=== PATIENT | male | born 1950 | race Caucasian/White ===

== ENCOUNTER → 2016-06-15 | Outpatient (CLI) | payer MEDICARE ==
[2016-06-15 11:44] LABS: ALT 29 U/L (21-72); AST 22 U/L (17-59); Cholesterol 167 mg/dL (<200); HDL Cholesterol 76 mg/dL (40-60); Triglycerides 107 mg/dL (<150)
== END | disposition home or self-care (01) ==
LOC: LABWHC1 10:55
PROVIDERS: ATTEND Internal Medicine Cardiovascular Disease
DX: E78.5 Hyperlipidemia, unspecified (principal); I25.10 Atherosclerotic heart disease of native coronary artery without angina pectoris
CPT/HCPCS: 36415; 80061; 84450; 84460

== ENCOUNTER → 2017-03-22 | Outpatient (CLI) | payer MEDICARE ==
[2017-03-22 16:25] LABS: Blood Urea Nitrogen 13 mg/dL (9-20)
--- NOTE | 2017-03-22 17:18 | CT ---
EXAMINATION TYPE: CT angio chest DATE OF EXAM: 03/22/2017 5:03 PM COMPARISON: NONE HISTORY: Diminished axillary pulse left, BP discrepancies CT DLP: 626 mGycm Automated exposure control for dose reduction was used. CONTRAST: CTA scan of the thorax is performed with IV Contrast, patient injected with 80 mL of Visipaque 320, p ulmonary embolism protocol. . FINDINGS: There are changes of bullous emphysema throughout both lungs. There is some ground[place] present which may represent some ongoing alveolitis. The lungs are otherwise clear. There is no significant axillary or hilar adenopathy. There is some mediastinal adenopathy. None of t hese are pathologically enlarged. There is no evidence of pulmonary embolus. The aortic root is normal in caliber without evidence of dissection. There is aneurysmal dilatation o f the descending thoracic aorta which measures 3 cm in the distal arch and measures 3.3 cm at the aor tic hiatus. Visualized portions of the upper abdomen are otherwise unremarkable. There is a normal origin of the great vessels. There is considerable vascular calcification. 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 The vertebral artery on the left appears occluded. There is no pleural or pericardial fluid. The heart is not enlarged. IMPRESSION: 1. THIS EXAMINATION IS NEGATIVE FOR PULMONARY EMBOLUS. 2. 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 THE LEFT VERTEBRAL ARTERY APPEARS OCCLUDED. 3. DESCENDING THORACIC AORTIC ANEURYSM.
== END | disposition home or self-care (01) ==
LOC: RADCTMAIN 15:53
PROVIDERS: ATTEND Family Medicine
DX: I71.2 Thoracic aortic aneurysm, without rupture (principal); I70.8 Atherosclerosis of other arteries
CPT/HCPCS: 82565; 84520; 71275; 36415; Q9967

== ENCOUNTER → 2017-11-01 | Outpatient (CLI) | payer MEDICARE ==
[2017-11-01 13:33] LABS: ALT 31 U/L (21-72); AST 25 U/L (17-59); Cholesterol 183 mg/dL (<200); HDL Cholesterol 72 mg/dL (40-60); LDL Cholesterol,Calculated 98 mg/dL (0-99); Triglycerides 63 mg/dL (<150)
== END | disposition home or self-care (01) ==
LOC: LABWHC1 13:00
PROVIDERS: ATTEND Internal Medicine Cardiovascular Disease
DX: I25.10 Atherosclerotic heart disease of native coronary artery without angina pectoris (principal); E78.5 Hyperlipidemia, unspecified
CPT/HCPCS: 36415; 80061; 84450; 84460